=== PATIENT | male | born 1975 | race Caucasian/White ===

== ENCOUNTER 2022-09-07 18:36 | Emergency (ER) | payer MEDICAID ==
[~2022-09-07] VITALS: Ht 165.1 cm; Wt 59.0 kg
[2022-09-07] MEDS ORDERED: LORAZEPAM 2MG/ML CPJ IV ONE (19:15)
[2022-09-07 19:55] LABS: BASOPHILS % 0.4 % (0.0-2.0); HEMATOCRIT. 40.4 % (42.0-52.0); HEMOGLOBIN. 13.8 g/dL (14.0-18.0); LYMPHOCYTES % 12.8 % (20.0-50.0); MEAN CORPUSCULAR HEMOGLOBIN 32.8 pg (28.0-32.0); MEAN CORPUSCULAR VOLUME 95.8 fL (80.0-94.0); MEAN PLATELET VOLUME 8.4 fl (7.4-10.4); MONOCYTES % 5.1 % (2.0-8.0); NEUTROPHILS % 80.7 % (40.0-76.0); PLATELET 248 x1000/uL (130-400); RED BLOOD CELL COUNT 4.22 mill/uL (4.7-6.1); RED CELL DISTRIBUTION WIDTH 11.9 % (11.6-14.6)
[2022-09-07 20:05] LABS: CHLORIDE 102 mEq/L (98-107)
[2022-09-07] MEDS ORDERED: LORAZEPAM 2MG/ML CPJ IV NR (22:15)
[2022-09-07] MEDS ORDERED: MECLIZINE 25MG TABLET PO ONE (22:15)
[2022-09-07] MEDS ORDERED: LORAZEPAM 1MG TABLET PO ONE (22:15)
[2022-09-07] MEDS ORDERED: LORAZEPAM 1MG TABLET PO NR (22:15)
[2022-09-08] MEDS ORDERED: POTASSIUM CHLORIDE 20MEQ TABLET SR PO ONE
[2022-09-08 01:30] VITALS: BP 122/76
== END 2022-09-08 01:31 | disposition home or self-care (01) ==
LOC: ER 18:36
DX: R42 Dizziness and giddiness (principal); F41.9 Anxiety disorder, unspecified; E87.6 Hypokalemia; R20.0 Anesthesia of skin
CPT/HCPCS: 36415; 70450; 71045; 80053; 85025; 93005; 99285; J2060; Z7610; J8597